=== PATIENT | female | born 1975 | race Two or more races ===

== ENCOUNTER 2017-07-05 07:43 | Inpatient (IN) | payer BC, OTHER ==
[~2017-07-05] VITALS: Ht 180.3 cm; Wt 72.1 kg
--- NOTE | 2017-07-05 12:00 | NUR ---
PRE ADMISSION 42 year old female from [place], alert and oriented x4. bp: 94/55 p: 81 t: 98.0 r: 16 o2 sat: 97% room air. Patient reports allergies to: sulfa, penicillin, and Dilaudid. patient reports she is here to detox off of Valium and marijuana. Patient reports history of seizure x1 7 years ago due to withdrawal off of benzodiazepines. Patient was educated regarding unit policy and procedures with good verbal understanding. patient denies pain/discomfort. patient calm and cooperative. Will notify Dr. rivera of new admission.
--- NOTE | 2017-07-05 12:14 | NUR ---
ADMISSION Patient arrived to unit at 1214, body search completed by female [employer], no contraband found. Body assessment completed, patients skin is intact, no bruising, discoloration or breakdown noted. Patient is 5 feet 11 inches tall. patient weights 159 lbs. Patient was oriented to unit and to room, education regarding call light use was provided with good verbal understanding. Patient reports her primary care physician is: Dr. Kelvin Andrews in [place] . Patient reports allergies to: sulfonamide, penicillins, and Dilaudid. Patient repots she moved to [place] January 2016 from [place], has been living by her self in a rental ([employer]). Patient reports her primary film projector operator is Dr. Jhonny Macias at [facility] in [place]. Patient reports substance use/history of: Valium 45mg Po daily for two months, reports take 15mg three times a day, last took 15mg on 07/04/2017 at bedtime. Marijuana 1 gram (Vape) oil smoked daily for two months, last used 1 gram 07/05/2017, prior to coming to [facility]. Patient reports she relapsed approximately two months ago. Reports from July-August 2016 was at [facility] in [facility], and from August 2016-April [address] [facility] in [place], relapsed one week later. reports longest period of sobriety was for 2 years, 7 years ago. Patient brought home medications, medications were input into [facility]. 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 Patient reports weight loss of 26 lbs in 5 weeks, as per patient she is currently "restrictive" of what she eats. Patient reports she has had one episode of seizure 7 years ago, d/t benzodiazepine withdrawal. Patient does not know if she has a family history of substance abuse, reports she is adopted. Patient reports attempted suicide on May 17, 2016 overdosed on benzodiazepines, did not receive medical care. Current patient reports she has not thoughts of suicide or no plans for suicide. during assessment patient was seen and examined by Dr. Jaime. Psychiatrist notified of new admission. Patients pupils are equal and reactive, 3mm. Lungs clear upon auscultation. Abdomen is soft and non distended, bowel sounds heard in all quadrants. Safety measures in place. call light kept with in reach. fall and seizure precautions observed and in place. all needs met and rendered, safety measures in place. will continue to monitor closely.
[2017-07-05] MEDS ORDERED: MONT10TA22 PO (12:15)
[2017-07-05] MEDS ORDERED: CLON0.1T PO (12:15)
[2017-07-05] MEDS ORDERED: ONDA4TAB5 PO (12:15)
[2017-07-05] MEDS ORDERED: OMEP40CA37 PO (12:15)
[2017-07-05] MEDS ORDERED: GABA600T2 PO (12:15)
[2017-07-05] MEDS ORDERED: ALBU8.5H8 IH (12:15)
[2017-07-05] MEDS ORDERED: FLUO40CA8 PO (12:15)
[2017-07-05 12:44] VITALS: BP 94/55
[2017-07-05] MEDS ORDERED: DIAZEPAM 10 MG TABLET PO PRN ×2 (14:00)
[2017-07-05] MEDS ORDERED: LOPERAMIDE HCL 2 MG CAPSULE PO PRN ×2 (14:00)
[2017-07-05] MEDS ORDERED: ONDANSETRON 4 MG/2 ML VIAL IM PRN (14:00)
[2017-07-05] MEDS ORDERED: MAG HYDROX/AL HYDROX/SIMETH 30 ML LIQUID UDC PO PRN (14:00)
[2017-07-05] MEDS ORDERED: MIRALAX 17 GM POWD.PACK PO PRN (14:00)
[2017-07-05] MEDS ORDERED: PROAIR ALBUTEROL INH PRN (14:00)
[2017-07-05] MEDS ORDERED: DICYCLOMINE HCL 20 MG TABLET PO PRN (14:00)
[2017-07-05] MEDS ORDERED: IBUPROFEN 400 MG TABLET PO PRN (14:00)
[2017-07-05] MEDS ORDERED: LORAZEPAM 2 MG/1 ML VIAL IM PRN (14:00)
[2017-07-05] MEDS ORDERED: ACETAMINOPHEN 325 MG TABLET PO PRN (14:00)
[2017-07-05] MEDS ORDERED: DIAZEPAM 5 MG TABLET PO PRN (14:00)
[2017-07-05] MEDS ORDERED: PATIENT MAY USE OWN MED- MD OK PO PRN (14:00)
[2017-07-05 15:17] LABS: *URINE HCG, QUAL NEGATIVE (NEGATIVE)
[2017-07-05] MEDS ORDERED: THIAMINE HCL 200 MG/2 ML VIAL IM ONE (15:25)
[2017-07-05] MEDS ORDERED: BACLOFEN 20 MG TABLET PO PRN (16:00)
[2017-07-05] MEDS: DIAZEPAM 10 MG TABLET PO SCH ×3 (16:07→22:00)
[2017-07-05 16:12] LABS: *AMPHETAMINE, URINE NEGATIVE (NEGATIVE); *BARBITURATE, URINE NEGATIVE (NEGATIVE); *CANNABINOID, URINE POSITIVE (NEGATIVE); *COCCAINE, URINE NEGATIVE (NEGATIVE); *OPIATE, URINE NEGATIVE (NEGATIVE); *PHENCYCLIDINE SCREEN,URINE NEGATIVE (NEGATIVE)
[2017-07-05] MEDS ORDERED: HYDROXYZINE PAMOATE 25 MG CAPSULE PO PRN (16:15)
[2017-07-05 16:52] LABS: BASOPHILS % (AUTO) 0.7 % (0.0-2.0); EOSINOPHILS # (AUTO) 0.5 K/uL (0.0-0.7); EOSINOPHILS % (AUTO) 6.8 % (0.0-7.0); HEMATOCRIT 41.4 % (37-47); HEMOGLOBIN 13.3 G/DL (12.0-16.0); LYMPHOCYTES % (AUTO) 28.9 % (20.5-51.5); MEAN CORPUSCULAR HGB CONC 32 g/dL (32.0-37.0); MEAN CORPUSCULAR VOLUME 83.9 FL (81.0-99.0); MONOCYTES # (AUTO) 0.6 K/UL (0.1-1.30); MONOCYTES % (AUTO) 8.8 % (0.0-11.0); NEUTROPHILS # (AUTO) 3.7 K/UL (1.8-8.9); NEUTROPHILS % (AUTO) 54.8 % (38.5-71.5); PLATELET COUNT (AUTO) 278 K/UL (150-450); RED BLOOD CELL COUNT(AUTO) 4.93 MIL/UL (4.2-5.4); WHITE BLOOD COUNT (AUTO) 6.8 K/UL (4.0-11.2)
[2017-07-05 17:00] VITALS: BP 93/64
[2017-07-05 17:12] LABS: ETHANOL < 3 MG/DL (0-0)
[2017-07-05 17:15] LABS: ALANINE AMINOTRANSFERASE 17 U/L (14-59); ALKALINE PHOSPHATASE 54 U/L (50-136); ASPARTATE AMINOTRANSFERASE 6 U/L (15-37); BILIRUBIN,TOTAL 0.2 mg/dL (0.2-1.0); CARBON DIOXIDE 33 mmol/L (21-32); CHLORIDE 100 mmol/L (98-107); CREATININE 1.2 mg/dL (0.6-1.3); GLUCOSE 110 mg/dL (74-106); MAGNESIUM 2.3 mg/dL (1.8-2.4); POTASSIUM 3.9 mmol/L (3.5-5.1); TOTAL PROTEIN, SERUM 7.4 g/dL (6.4-8.2); UREA NITROGEN, BLOOD 7 mg/dL (7-18)
[2017-07-05] MEDS ORDERED: FLUOXETINE HCL 60 MG PO SCH (17:15)
[2017-07-05] MEDS ORDERED: Medication Not On Formulary EA (Gabapentin 600 MG) PO SCH (17:15)
[2017-07-05] MEDS: FLUOXETINE HCL 20 MG CAPSULE PO SCH (17:36)
[2017-07-05] MEDS: GABAPENTIN 300 MG CAPSULE PO SCH (17:36)
--- NOTE | 2017-07-05 17:36 | NUR ---
PRN BACLOFEN Patient c/o muscle aches 04/09, provided with non pharmacological interventions, with no relief, administered baclofen as ordered, will monitor effectiveness.
--- NOTE | 2017-07-05 18:36 | NUR ---
BACLOFEN REASSESSMENT Patient reports medication effective, current pain level 0/10, will continue to monitor.
--- NOTE | 2017-07-05 18:57 | NUR ---
END OF SHIFT Patient alert and oriented x4, vital signs stable during shift. Patient compliant with therapeutic plan of care. Patient with admitting Dx:BZO/marijuana dependence. Patient was seen and examined by Dr. rivera and Dr. Mann, medications were reconciled during shift. Patient currently with ongoing Valium taper, well tolerated, no ASE. Detox medication effective at reducing withdrawal symptoms. 1300 assessment patient presented with: tremors that can be felt but not seen, barely sweating, moderate anxiety, and restlessness with ciwa score of: 9; 1700 assessment patient presented with: tremors that can be felt but not seen, barely sweating, moderate anxiety and restlessness with ciwa score of: 9. Patient was administered PRN: Baclofen during shift, medication was effective. Patient denies any SI/HI. Encouraged to attend group therapies/sessions to learn new coping skills to prevent relapse.Encouraged adequate PO fluid intake as tolerated. Safety measures in place. Call light kept with in reach. All needs met and rendered. Patient endorsed to dining car hop nurse, all pertinent information discussed.
[2017-07-05 20:00] VITALS: BP 98/69
--- NOTE | 2017-07-05 20:00 | NUR ---
start of shift Received 42 year old female, alert and oriented x4. Patient reports allergies to: sulfa, penicillin, and Dilaudid. Px reports she is here to detox off of Valium and marijuana. 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 Patient reports history of seizure due to withdrawal off of benzodiazepines. Px reports body aches and hot and cold flushes throughout her body, fatigue, skin is clammy. Respiration is non labored, denies chest pain. Medications due and safety measures placed, call light within reach, side rails up x2. Bed locked and in low position. Will continue to monitor.
[2017-07-05] MEDS: CARBAMAZEPINE 200 MG TABLET PO SCH (20:05)
[2017-07-05] MEDS: GABAPENTIN 600MG PO SCH (20:05)
[2017-07-05] MEDS: OMEPRAZOLE DR 40MG PO SCH (20:05)
--- NOTE | 2017-07-05 20:30 | NUR ---
Px refused to take Clonidine 0.1 mg risk and benefits explained. BP= 98/69, AZ=63. Px is stable, safety precautions in placed, will continue to monitor.
[2017-07-05] MEDS: CLONIDINE 0.1MG PO SCH (21:00)
--- NOTE | 2017-07-05 22:00 | NUR ---
Medication Held Valium 10mg 1 tab held due to decrease BP. BP= 84/48 then rechecked after 15mins BP= 94/59, OR=60. Px sleeping on bed, arousable, respirations unlabored. Safety measures in placed. Will continue to monitor. Addendum: 07/06/17 at 0123 by SCOTT MURPHY RN MD kaye
[2017-07-06] VITALS: BP 91/54
--- NOTE | 2017-07-06 | NUR ---
VS BP= 91/54, NC=57, RR=16, V5srl=02%, T=97.8 CIWA deferred due to the px is sleeping, to assess while the px awake as ordered. Safety measures in place, will continue to monitor.
[2017-07-06 04:00] VITALS: BP 99/71
--- NOTE | 2017-07-06 04:00 | NUR ---
VS BP= 99/71, NE= 55, RR= 18, O2sat= 99%, T= 98.1 CIWA defferred due to px ix sleeping to assess if the px is awake as ordered Safety measures are in placed, will continue to monitor
--- NOTE | 2017-07-06 07:00 | NUR ---
End of Shift notes 42 year old female px, alert and oriented x4. Patient reports allergies to: sulfa, penicillin, and Dilaudid. Px reports she is here to detox off of Valium and marijuana. 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 Patient reports history of seizure due to withdrawal off of benzodiazepines. During shift Px reported body aches and hot and cold flushes throughout her body, fatigue, skin is clammy scheduled medications administered. Valium 10mg held due to decreased BP, MD notified and aware. Latest CIWA 6. Px slept for 10 hours, intake of 300 ml, and voids 1 x, BM 0x. Safety measures placed, call light within reach, side rails up x2. Bed locked and in low position. Endorsed to day shift nurse.
--- NOTE | 2017-07-06 07:30 | NUR ---
START OF SHIFT NOTE: Received report from lieutenant shift supervisor nurse. Pt is a 42 year old female admitted 07-05-17 for Valium and marijuana dependence. Pt is on a 5 day Valium taper. Tolerating well. Pt is alert and oriented X4. Color good, skin warm and dry. Respirations even and unlabored. Pt resting in bed. Safety precautions observed. Call light within reach.
[2017-07-06 08:00] VITALS: BP 107/58
[2017-07-06] MEDS ORDERED: FLUOXETINE HCL 20 MG CAPSULE PO SCH (09:00)
[2017-07-06] MEDS: GABAPENTIN 300 MG CAPSULE PO SCH (09:00)
[2017-07-06] MEDS ORDERED: FOLIC ACID 1 MG TABLET PO SCH (09:00)
[2017-07-06] MEDS ORDERED: THIAMINE HCL 100 MG TABLET PO SCH (09:00)
[2017-07-06] MEDS ORDERED: TUBERCULIN,PURIF.PROT.DERIV. 5 TU/0.1 ML TEST ID ONE (09:00)
--- NOTE | 2017-07-06 09:00 | NUR ---
VSS CIWA 8 c/o fine tremors, anxiety and sweating. TB test read LFA negative
[2017-07-06] MEDS: CLONIDINE 0.1MG PO SCH ×3 (09:15→21:00)
[2017-07-06] MEDS: DIAZEPAM 10 MG TABLET PO SCH ×3 (09:15→21:00)
[2017-07-06] MEDS: FLUOXETINE HCL 20 MG CAPSULE PO SCH (09:15)
[2017-07-06] MEDS: MULTIVITAMINS,THERAPEUTIC TABLET PO SCH (09:15)
[2017-07-06] MEDS: CARBAMAZEPINE 200 MG TABLET PO SCH ×2 (09:15→21:01)
[2017-07-06] MEDS: GABAPENTIN 600MG PO SCH ×3 (09:16→21:02)
[2017-07-06] MEDS: MONTELUKAST 10 MG PO SCH (09:16)
[2017-07-06 11:10] LABS: HEPATITIS B SURFACE AG Negative (Negative)
[2017-07-06 12:30] VITALS: BP 107/58
[2017-07-06] MEDS ORDERED: BACLOFEN 20 MG TABLET PO PRN (13:30)
[2017-07-06] MEDS: DICYCLOMINE HCL 20 MG TABLET PO SCH ×2 (14:13→21:00)
[2017-07-06] MEDS: KETOROLAC TROMETHAMINE 30 MG INJ IM PRN (14:15)
--- NOTE | 2017-07-06 14:21 | NUR ---
VSS Pt c/o back pain 06/09 Toradol 30mg IM prn given LG. CIWA 5
[2017-07-06] MEDS ORDERED: DIAZEPAM 5 MG TABLET PO PRN (14:30)
[2017-07-06] MEDS ORDERED: DIAZEPAM 10 MG TABLET PO PRN ×2 (14:30)
--- NOTE | 2017-07-06 15:30 | NUR ---
Pt states feels improved after Toradol prn. Pain 5/
[2017-07-06 17:18] VITALS: BP 101/66
--- NOTE | 2017-07-06 17:50 | NUR ---
Vistaril 50mg po rn given for "panic attack."
[2017-07-06] MEDS: HYDROXYZINE PAMOATE 25 MG CAPSULE PO PRN (17:51)
--- NOTE | 2017-07-06 18:41 | NUR ---
Pt states feels finally improved after Vistaril prn
--- NOTE | 2017-07-06 19:07 | NUR ---
END OF SHIFT NOTE: Report given to manhole stripper nurse. Pt is a 42 year old female admitted 07-05-17 for Valium and marijuana dependence. Pt is on a 5 day Valium taper. Tolerating well. Pt is alert and oriented X4. Color good, skin warm and dry. Respirations even and unlabored. Vital signs have remained stable throughout shift. Last CIWA 5 @ 1500. Toradol 30mg IM prn given LG @ 1400. Vistaril 50mg po prn given @ 1750. Pt resting in bed. Safety precautions observed. Call light within reach.
[2017-07-06 20:00] VITALS: BP 98/68
--- NOTE | 2017-07-06 20:00 | NUR ---
Start of Shift Pt is a 42 year old female admitted for Benzo dependence, placed on 5 day Valium taper. Pt reported using Valium PO 45mg 45mg/daily x2 months and Marijuana 1g/daily x 2months. 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 Pt reports allergies to PCN, Sulfa and Dilaudid. Upon assessment, pt presents with anxiety, fatigue, reports body/joint aches and hot flushes, respirations even/unlabored, denies SOB/chest pain, denies n/v/d. Safety measures in place, call light within reach, side rails up x2, bed locked and in low position. Will continue to monitor.
[2017-07-06] MEDS: QUETIAPINE FUMARATE 200 MG TABLET PO SCH (21:00)
[2017-07-06] MEDS: OMEPRAZOLE DR 40MG PO SCH (21:00)
[2017-07-07] VITALS: BP 98/56
--- NOTE | 2017-07-07 | NUR ---
Vital Signs BP 98/56, pulse 66, resp 16, Spo2 97% room air, temp 98 CIWA deferred due to pt sleeping, to assess while pt is awake as ordered. Safety measures in place. Will continue to monitor.
[2017-07-07 04:00] VITALS: BP 95/55
[2017-07-07] MEDS: KETOROLAC TROMETHAMINE 30 MG INJ IM PRN ×2 (04:28→20:05)
--- NOTE | 2017-07-07 04:28 | NUR ---
PRN Administration Pt reports generalized body pain, 05/09. Toradol inj administered. Safety measures in place, will continue to monitor.
--- NOTE | 2017-07-07 05:28 | NUR ---
PRN Reassessment Upon reassessment, pt is in bed, resting, respirations even/unlabored. Safety measures in place. Will continue to monitor
--- NOTE | 2017-07-07 07:00 | NUR ---
End of Shift Pt is a 42 year old female admitted for Benzo dependence, placed on 5 day Valium taper. Pt reported using Valium PO 45mg 45mg/daily x2 months and Marijuna 1g/daily x 2months. 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 Pt reports allergies to PCN, Sulfa and Dilaudid. During shift, pt presented with anxiety, fatigue, reports body/joint aches and hot flushes - scheduled taper medications administered, CIWA 5. No PRN medications administered. Pt refused scheduled Bentyl 20mg PRN and Clonidine 0.1mg - education provided on risks/benefits. Toradol Inj administered for generalized body aches, as noted in separate note. Pt slept for 6 hours, intake of 855 ml PO, voids x1 and stool x0. Safety measures in place, call light within reach, side rails up x2, bed locked and in low position. Endorsed to days shift nurse.
--- NOTE | 2017-07-07 07:01 | NUR ---
Start of Shift Notes: Received patient in her room. Alert and oriented x 4. Verbally responsive. Able to make needs known. Respirations even and unlabored. No SOB noted. Skin warm and dry to touch. Abdomen soft and non-distended. with (+) BS in all 4 quadrants. No complains of N/V/D or constipation noted. Voids independently. Ambulatory ad viridiana with steady gait. Patient is a 42 year old female admitted for BZO and marijuana dependence who was placed on a 5-day Valium taper as ordered. No adverse reactions noted. 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 Prior to admission, patient was using 45 mg of Valium and 1 gram of Marijuana. Educated patient on her current plan of care for the day and her medication regimen. Encouraged oral fluid intake and encouraged group participation to learn new skills to prevent relapse.
[2017-07-07 08:00] VITALS: BP 100/63
[2017-07-07] MEDS: MULTIVITAMINS,THERAPEUTIC TABLET PO SCH (08:45)
[2017-07-07] MEDS: DIAZEPAM 5 MG TABLET PO SCH ×4 (08:46→20:00)
[2017-07-07] MEDS: FLUOXETINE HCL 20 MG CAPSULE PO SCH (08:46)
[2017-07-07] MEDS: CLONIDINE 0.1MG PO SCH ×3 (08:46→20:29)
[2017-07-07] MEDS: GABAPENTIN 600MG PO SCH ×3 (08:46→20:01)
[2017-07-07] MEDS: DICYCLOMINE HCL 20 MG TABLET PO SCH ×3 (08:46→20:29)
[2017-07-07] MEDS: MONTELUKAST 10 MG PO SCH (08:52)
[2017-07-07] MEDS ORDERED: CARBAMAZEPINE 200 MG TABLET PO SCH (09:00)
[2017-07-07] MEDS ORDERED: METHOCARBAMOL 500 MG TABLET PO PRN (11:30)
[2017-07-07 12:00] VITALS: BP 92/50
[2017-07-07] MEDS: BACLOFEN 10 MG TABLET PO SCH ×2 (14:28→20:00)
[2017-07-07] MEDS: CARBAMAZEPINE 200 MG TABLET PO SCH ×2 (14:28→20:00)
[2017-07-07] MEDS: HYDROXYZINE PAMOATE 25 MG CAPSULE PO PRN (14:28)
--- NOTE | 2017-07-07 14:28 | NUR ---
Vistaril 50 mg PO given: Patient complained of anxiety. Noted to be restless. Non-pharmacological interventions were provided but ineffective. Medicated patient with Vistaril 50 mg PO as ordered. Will monitor for effectiveness.
--- NOTE | 2017-07-07 15:28 | NUR ---
Re-assessment: Per patient, PRN Vistaril was effective in reducing patient's anxiety.
[2017-07-07 16:00] VITALS: BP 96/54
--- NOTE | 2017-07-07 18:54 | NUR ---
End of Shift Notes: Patient continues to be on 5-day Valium as ordered. No adverse reactions noted. VS monitored closely q 4 hours. No significant abnormalities noted. Withdrawal symptoms closely monitored. Initial CIWA 6, patient presented with anxiety, sweats and agitation. Last CIWA 3. Per patient, Valium has been helping her with her withdrawal symptoms. Compliant with care and treatment. All needs met and attended. Will continue to monitor closely.
[2017-07-07 20:00] VITALS: BP 90/60
[2017-07-07] MEDS: QUETIAPINE FUMARATE 200 MG TABLET PO SCH (20:00)
--- NOTE | 2017-07-07 20:00 | NUR ---
Start of Shift Pt is a 42 year old female admitted for Benzo dependence, placed on 5 day Valium taper. Pt reported using Valium PO 45mg 45mg/daily x2 months and Marijuana 1g/daily x 2months. 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 Pt reports allergies to PCN, Sulfa and Dilaudid. Upon assessment, pt presents with fatigue, reports feeling anxious, reports body/joint aches, respirations even/unlabored, denies SOB/chest pain, denies n/v/d. Safety measures in place, call light within reach, side rails up x2, bed locked and in low position. Will continue to monitor.
[2017-07-07] MEDS: OMEPRAZOLE DR 40MG PO SCH (20:01)
--- NOTE | 2017-07-07 20:05 | NUR ---
PRN Administration Pt reports generalized body aches 06/09. Toradol inj 30mg/1ml PRN administered. Safety measures in place. Will continue to monitor.
--- NOTE | 2017-07-07 21:05 | NUR ---
PRN Reassessment Upon reassessment, pt reports subsiding body aches, rated 2-3/10. Needs met, safety measures in place. Will continue to monitor.
[2017-07-08] VITALS: BP 92/67
--- NOTE | 2017-07-08 | NUR ---
Vital Signs BP 92/67, pulse 68, resp 16, Spo2 99% room air, temp 97.9 CIWA deferred due to pt sleeping, to assess while pt is awake as ordered. Safety measures in place. Will continue to monitor.
[2017-07-08 04:00] VITALS: BP 96/62
--- NOTE | 2017-07-08 04:00 | NUR ---
Vital Signs BP 96/62, pulse 59, resp 17, Spo2 99% room air, temp 98.3 CIWA deferred due to pt sleeping, to assess while pt is awake as ordered. Safety measures in place. Will continue to monitor.
--- NOTE | 2017-07-08 07:00 | NUR ---
End of Shift Pt is a 42 year old female admitted for Benzo dependence, placed on 5 day Valium taper. Pt reported using Valium PO 45mg 45mg/daily x2 months and Marijuana 1g/daily x 2months. 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 Pt reports allergies to PCN, Sulfa and Dilaudid. During shift, pt presented with fatigue, reports feeling anxious, reports body/joint aches scheduled taper medications administered along with Toradol inj 30mg/ml for body aches, effective. Pt refused scheduled Clonidine 0.1mg and Bentyl 20mg, risks benefits explained. Latest CIWA 3. Pt slept for 11 hours, intake of 300 ml PO, voids x1 and stool x0. Safety measures in place, call light within reach, side rails up x2, bed locked and in low position. Endorsed to day shift nurse.
[2017-07-08 08:00] VITALS: BP 94/56
[2017-07-08] MEDS: ONDANSETRON ODT 4 MG TAB.RAPDIS SL PRN (08:07)
[2017-07-08] MEDS: FLUOXETINE HCL 20 MG CAPSULE PO SCH (08:07)
[2017-07-08] MEDS: MULTIVITAMINS,THERAPEUTIC TABLET PO SCH (08:07)
[2017-07-08] MEDS: MONTELUKAST 10 MG PO SCH (08:08)
[2017-07-08] MEDS: BACLOFEN 10 MG TABLET PO SCH ×3 (08:08→21:00)
[2017-07-08] MEDS: DIAZEPAM 5 MG TABLET PO SCH ×3 (08:08→21:00)
[2017-07-08] MEDS: CARBAMAZEPINE 200 MG TABLET PO SCH ×3 (08:08→21:00)
[2017-07-08] MEDS: GABAPENTIN 600MG PO SCH ×3 (08:08→21:00)
--- NOTE | 2017-07-08 08:08 | NUR ---
Zofran 4 mg SL given: Patient noted with complain of intermittent nausea with no vomiting noted. CIWA 10, noted with anxiousness and mild agitation. Medicated patient with Zofran 4 mg SL as ordered. Will monitor for effectiveness.
[2017-07-08] MEDS: CLONIDINE 0.1MG PO SCH ×3 (09:00→21:00)
[2017-07-08] MEDS: DICYCLOMINE HCL 20 MG TABLET PO SCH ×3 (09:00→21:00)
--- NOTE | 2017-07-08 09:02 | NUR ---
Clonidine 0.1mg PO held/Bentyl 20 mg PO not given: Patient refused Bentyl 20 mg PO, states "I don't need it right now." Noted with decreased blood pressure of 94/56. Clonidine 0.1mg PO held. Denies any complains of headache, lightheadedness or dizziness noted.
--- NOTE | 2017-07-08 09:07 | NUR ---
Re-assessment: Zofran 4 mg SL Per patient, PRN Zofran was effective in relieving nausea.
[2017-07-08 12:00] VITALS: BP 106/76
--- NOTE | 2017-07-08 14:00 | NUR ---
MD Communication: Notified Dr. Jaime that patient left group early and is complaining of dizziness. VS were taken. Noted with laying BP of 109/68, Pulse 64. sitting BP 127/84, Pulse 65, and standing BP 127/80. Patient verbalizes "the room is spinning." Notified MD Jaime. NNO made at this time. To continue to monitor the patient. Safety precautions in place. Kept bilateral siderails up when in bed. Call light kept in reach. Encouraged patient to rest and to notfy nurse immediately.
--- NOTE | 2017-07-08 14:21 | NUR ---
Bentyl 20 mg PO not given: Patient refused Bentyl 20 mg PO, states "I don't need it right now." Educated patient on the risk and consequences but patient still refused. Will continue to monitor and notified MD.
[2017-07-08 16:45] VITALS: BP 102/73
--- NOTE | 2017-07-08 17:27 | NUR ---
Zofran 4 mg IM injection: Administered Zofran 4 mg IM injection at this time. Patient is unable to tolerate any PO intake during the shift. MD Jaime paged. Will monitor effectiveness.
--- NOTE | 2017-07-08 17:36 | NUR ---
MD Communication: Patient noted with CIWA 19, noted with gross tremors, vomitting x 4, noted with sweating and mild agitation. Also noted to speech is slurred. Able to verbalize date and time, however noted racing thoughts, stating "I need to make a phone call, im discharging today." Patient was oriented and reassurance provided. Also noted patient to have unsteady gait and requires assistance when walking. Placed on 1:1 at this time. Message left to Dr. Jaime's voicemail. Notified Charge nurse. Awaiting for MD to return the call.
--- NOTE | 2017-07-08 17:57 | NUR ---
Re-assessment: Zofran Per patient, PRN Zofran was effective in relieving vomitting. No further episodes of emesis noted. Patient continues to complain of nausea. Will continue to monitor the patient.
--- NOTE | 2017-07-08 18:00 | NUR ---
New Orders: Dr. Jaime returned call. Relayed patient's current condition with orders to do STAT CBC, BMP, MAG, CXR, UA, BLOOD CULTURE, VALIUM 5 MG x 1, and IV NS at 125cc/hr. is away from a computer and is unable to enter in orders at this time. Orders readback and verified. Orders noted and carried out.
[2017-07-08] MEDS ORDERED: DIAZEPAM 5 MG TABLET PO ONE (18:15)
--- NOTE | 2017-07-08 18:30 | NUR ---
Valium 5 mg PO x 1 given now: Patient's CIWA 19. OT Valium 5 mg PO x 1 given now.
[2017-07-08] MEDS: IV NS 1000 ML 1,000 ML IV SCH (18:57)
--- NOTE | 2017-07-08 18:59 | NUR ---
IV inserted: Inserted IV to patient's left hand via aseptic technique. Educated patient before procedure was performed. Attempted x 2 with good blood return. Tourniquet released. Patient tolerated procedure well. Utilized 24g to patient's left hand. IV fluids initiated at 125cc/hr. Flushed adequately with NS per unit's protocol.
[2017-07-08 19:04] LABS: BASOPHILS % (AUTO) 0.5 % (0.0-2.0); EOSINOPHILS # (AUTO) 0.3 K/uL (0.0-0.7); EOSINOPHILS % (AUTO) 5.5 % (0.0-7.0); HEMATOCRIT 39.2 % (37-47); HEMOGLOBIN 12.7 G/DL (12.0-16.0); LYMPHOCYTES # (AUTO) 1.7 K/UL (0.8-4.8); LYMPHOCYTES % (AUTO) 31.7 % (20.5-51.5); MEAN CORPUSCULAR HEMOGLOBIN 26.7 UUG (27.0-31.0); MEAN CORPUSCULAR HGB CONC 32 g/dL (32.0-37.0); MEAN CORPUSCULAR VOLUME 82.7 FL (81.0-99.0); MONOCYTES # (AUTO) 0.4 K/UL (0.1-1.30); MONOCYTES % (AUTO) 7.8 % (0.0-11.0); NEUTROPHILS # (AUTO) 3.1 K/UL (1.8-8.9); NEUTROPHILS % (AUTO) 54.5 % (38.5-71.5); PLATELET COUNT (AUTO) 258 K/UL (150-450); RED BLOOD CELL COUNT(AUTO) 4.74 MIL/UL (4.2-5.4); WHITE BLOOD COUNT (AUTO) 5.5 K/UL (4.0-11.2)
[2017-07-08 19:08] LABS: MAGNESIUM 1.9 mg/dL (1.8-2.4)
--- NOTE | 2017-07-08 19:15 | NUR ---
START OF SHIFT Received 42 year old female admitted on 07/05/17 for Valium dependency. Pt is full code with allergy to sulfa, PCN, and dilaudid. 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 She reports a hx of seizure in 2006 related with withdrawal. She reports using Valium PO 45 mg daily for 2 months. Last dose as 15 mg on 07/04/17. And Marijuana 1 gram daily for 2 months. Last dose was 1 gram on 07/05/17. She is placed on 5 day Ativan taper started on 07/05/17 and tolerating well. She is currently on 1:1 for safety. She has a 24 gauge IV on left hand with NS running at 125 mL/hr. Pt is tolerating well. Per endorsement, she received PRN Zofran and valium x1. Pt is alert and oriented x3, breathing is even and unlabored. Safety measures in place. Will monitor.
[2017-07-08 19:18] LABS: POTASSIUM 4.3 mmol/L (3.5-5.1)
--- NOTE | 2017-07-08 19:23 | NUR ---
End of Shift Notes: Patient continues to be on 5-day Valium as ordered. No adverse reactions noted. VS monitored closely q 4 hours. BP at 0800 94/56, Clonidine was held. Withdrawal symptoms closely monitored. Initial CIWA 10, patient presented with anxiety, nausea, sweats and agitation. Medicated patient with Zofran 4 mg ODT as ordered for nausea with help after 1 hour. Noted patient with complain of dizziness during the day. VS stable. Patient noted with episodes of emesis x 4, unsteady gait, sweating, gross tremors. CIWA 19. Notified MD, new order received. Orders noted and carried out. OT Valium 5 mg PO given at 1830. Results pending. IV of NS at 125cc/hr to patients left hand infusing well. Compliant with care and treatment. All needs met and attended. Will continue to monitor closely.
--- NOTE | 2017-07-08 19:30 | NUR ---
VALIUM REASSESSMENT One time Valium effective. Pt noted with nausea. CIWA decreased to 16. Will continue to monitor.
[2017-07-08 20:00] VITALS: BP 118/84
[2017-07-08] MEDS: QUETIAPINE FUMARATE 200 MG TABLET PO SCH (21:00)
[2017-07-08] MEDS: OMEPRAZOLE DR 40MG PO SCH (21:00)
--- NOTE | 2017-07-08 22:00 | NUR ---
NON ADMINISTERED MEDICATIONS Pt refused 2100 dose of medications d/t nausea and vomiting. Pt stated " I can't take tolerate meds, I'm so nauseous." Will continue to monitor.
--- NOTE | 2017-07-08 22:24 | NUR ---
Communication: Pt with nausea and vomiting not relieved by PRN Zofran IM 4mg. Unable to administered scheduled 21:[address] Nobles contacted and new order received for Zofran 4mg IM x1 NOW and to change PRN Zofran to 8mg Q8H PRN.
[2017-07-08] MEDS ORDERED: ONDANSETRON 4 MG/2 ML VIAL IM PRN (22:30)
[2017-07-08] MEDS ORDERED: ONDANSETRON 4 MG/2 ML VIAL IM ONE (22:30)
--- NOTE | 2017-07-08 22:51 | NUR ---
ONE TIME ZOFRAN One time order of Zofran 4 mg IM x1 administered as ordered. Pt tolerated well. Will monitor effectiveness.
--- NOTE | 2017-07-08 23:51 | NUR ---
REASSESSMENT One time zofran effective. Pt states she feels better and nausea has decreased. Breathing even and unlabored. Sitter at bedside. Will monitor.
[2017-07-09] VITALS: BP 106/64
[2017-07-09] MEDS: IV NS 1000 ML 1,000 ML IV SCH ×3 (02:37→18:30)
[2017-07-09 04:00] VITALS: BP 98/60
--- NOTE | 2017-07-09 04:00 | NUR ---
CIWA DEFERRED 0400 CIWA deferred d/t pt lying in bed with eyes closed noted to be asleep. Respirations 16, breathing even and unlabored. Safety measures in place. Will monitor.
[2017-07-09 06:42] LABS: BASOPHILS # (AUTO) 0.1 K/uL (0.0-8.0); BASOPHILS % (AUTO) 0.9 % (0.0-2.0); EOSINOPHILS # (AUTO) 0.1 K/uL (0.0-0.7); EOSINOPHILS % (AUTO) 1.7 % (0.0-7.0); HEMATOCRIT 36.3 % (37-47); HEMOGLOBIN 11.9 G/DL (12.0-16.0); LYMPHOCYTES # (AUTO) 1.4 K/UL (0.8-4.8); MEAN CORPUSCULAR HEMOGLOBIN 27.4 UUG (27.0-31.0); MEAN CORPUSCULAR HGB CONC 33 g/dL (32.0-37.0); MEAN CORPUSCULAR VOLUME 83.6 FL (81.0-99.0); MONOCYTES # (AUTO) 0.3 K/UL (0.1-1.30); MONOCYTES % (AUTO) 4.4 % (0.0-11.0); NEUTROPHILS # (AUTO) 5.2 K/UL (1.8-8.9); PLATELET COUNT (AUTO) 255 K/UL (150-450); RED BLOOD CELL COUNT(AUTO) 4.34 MIL/UL (4.2-5.4)
[2017-07-09 06:52] LABS: WHITE BLOOD COUNT (AUTO) 7.1 K/UL (4.0-11.2)
--- NOTE | 2017-07-09 06:58 | NUR ---
PRN ZOFRAN Pt complains of nausea with no episode of vomiting. Zofran IV administered as ordered. Will endorse to monitor effectiveness.
[2017-07-09] MEDS ORDERED: ONDANSETRON 4 MG/2 ML VIAL IV PRN (07:00)
--- NOTE | 2017-07-09 07:16 | NUR ---
END OF SHIFT Pt is a 42 year old female admitted on 07/05/17 for Valium dependency. Pt is full code with allergy to sulfa, PCN, and dilaudid. 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 She reports a hx of seizure in 2006 related with withdrawal. She continues on a 5 day Ativan taper started on 07/05/17 and continues on 1:1 for safety. She has a 24 gauge IV on left hand with NS running at 125 mL/hr. IV site is patent and flushing well. Pt is also tolerating fluids well. She had an episode of nausea and vomiting which was unrelieved by Zofran IM. was notified with new order for another dose of Zofran IM. Medication was effective. Pt refused all 2100 medications d/t nausea and vomiting. She slept a total of 4 hrs, Intake: 1000mL, Void: x1, BM: 0. CIWA:16 at 0000. Pt remains alert and oriented x3, breathing is even and unlabored. Safety measures in place. Endorsed to oncoming shift.
[2017-07-09 07:22] LABS: BILIRUBIN,DIRECT 0.1 mg/dL (0.0-0.2); BILIRUBIN,TOTAL 0.4 mg/dL (0.2-1.0); CREATININE 0.8 mg/dL (0.6-1.3); MAGNESIUM 1.8 mg/dL (1.8-2.4); POTASSIUM 4.1 mmol/L (3.5-5.1); TOTAL PROTEIN, SERUM 6.2 g/dL (6.4-8.2)
[2017-07-09] MEDS ORDERED: ONDANSETRON INJ 8 MG in IV NORMAL SALINE 50 ML IV PRN (07:30)
--- NOTE | 2017-07-09 07:45 | NUR ---
PRN REASSESSMENT PATIENT STATES OF NOW HER NAUSEA HAS SUBSIDED. WILL MONITOR
[2017-07-09 08:00] VITALS: BP 119/61
--- NOTE | 2017-07-09 08:10 | NUR ---
START OF SHIFT NOTE Received pt Aox4. Patient states he feels "better this morning, but very nauseous." Pt has 24 g IV to left hand with NS infusing @ 125 ml/hr. She is on 5 day Valium taper. PRN Zofran given per night nurse. She slept slept 4 hours. CIWA 11 at 0800 this morning. Encouraged increase in fluid intake to facilitate detox. Encouraged pt to attend groups and activities. Encouraged pt to notify RN if S/S of W/D worsen. All needs met. Will monitor closely and offer help frequently.
[2017-07-09] MEDS: GABAPENTIN 600MG PO SCH ×3 (08:50→21:57)
[2017-07-09] MEDS: DICYCLOMINE HCL 20 MG TABLET PO SCH ×3 (08:50→21:00)
[2017-07-09] MEDS: BACLOFEN 10 MG TABLET PO SCH ×3 (08:50→21:00)
[2017-07-09] MEDS: CLONIDINE 0.1MG PO SCH ×3 (08:50→21:56)
[2017-07-09] MEDS: MULTIVITAMINS,THERAPEUTIC TABLET PO SCH (08:51)
[2017-07-09] MEDS: MONTELUKAST 10 MG PO SCH (08:51)
[2017-07-09] MEDS: DIAZEPAM 5 MG TABLET PO SCH ×2 (08:51→21:56)
[2017-07-09] MEDS: FLUOXETINE HCL 20 MG CAPSULE PO SCH (08:51)
--- NOTE | 2017-07-09 08:52 | NUR ---
MD COMMUNICATION/ MED REFUSAL PATIENT REFUSED 0900 MEDICATIONS D/T NAUSEA. PT STATES AFTER STANDING IN THE SHOWER, SHE GOT NAUSEOUS AND THREW UP. SHE STATES SHE DOES NOT WANT TO TAKE ANY MEDICATIONS PO. PT REQUESTS PHENERGAN. IV FLUIDS INFUSING. DR CONROY NOTIFIED.
[2017-07-09] MEDS ORDERED: CARBAMAZEPINE 200 MG TABLET PO SCH (09:00)
[2017-07-09] MEDS ORDERED: PROMETHAZINE HCL 25 MG/1 ML VIAL IM PRN (09:15)
--- NOTE | 2017-07-09 10:48 | NUR ---
PRN MEDICATION PHENERGAN IM GIVEN FOR NAUSEA. WILL REASSESS
--- NOTE | 2017-07-09 11:45 | NUR ---
PRN REASSESSMENT PATIENT STATES THE MEDICATION HAS NO HELPED AND SHE JUST THREW UP ACID. WILL NOTIFY
[2017-07-09 12:00] VITALS: BP 115/63
[2017-07-09] MEDS ORDERED: SUMATRIPTAN SUCCINATE 6 MG/0.5 ML VIAL SQ PRN (12:00)
[2017-07-09] MEDS ORDERED: SCOPOLAMINE HYDROBROMIDE 1.5 MG PATCH TD SCH (12:30)
--- NOTE | 2017-07-09 12:40 | NUR ---
PRN MEDICATION IMITREX SUBQ GIVEN FOR HEADACHE 03/09. PT STATES SHE CAN FEEL A MIGRAINE COMING ON. WILL REASSESs
--- NOTE | 2017-07-09 13:35 | NUR ---
PRN REASSESSMENT PATIENT SLEEPING IN BED WITH RR EVEN AND UNLABORED. CALL LIGHT WITHIN REACH.
[2017-07-09 16:00] VITALS: BP 90/63
--- NOTE | 2017-07-09 18:29 | NUR ---
END OF SHIFT NOTE Patient continued on 5 day Valium taper. PRN Phenergan and Imitrex given during shift. Patient refused all scheduled medications during shift d/t nausea and vomiting. Patient has scopolamine patch applied behind right ear- decrease in nausea reported by pt from patch. Patient has 24 g IV to left hand with NS running @ 125 ml/hr. Last CIWA 9.Patient denies S/I or H/I. Patient did not attend groups or activities and rested in bed all of shift. All needs met. All safety measures in place. Vital signs stable. Will endorse to night nurse.
--- NOTE | 2017-07-09 19:15 | NUR ---
START OF SHIFT Received 42 year old female admitted on 07/05/17 for Valium dependency. Pt is full code with allergy to sulfa, PCN, and dilaudid. 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 She reports a hx of seizure in 2006 related with withdrawal. She reports using Valium PO 45 mg daily for 2 months. Last dose as 15 mg on 07/04/17. And Marijuana 1 gram daily for 2 months. Last dose was 1 gram on 07/05/17. She is placed on 5 day Valium taper started on 07/05/17 and tolerating well. Her 1:1 was discontinued. She has a 24 gauge IV on left hand with NS running at 125 mL/hr. Pt is tolerating well. Per endorsement, she received PRN Imitrex and phenergan which was not effective, and currently has scopolamine patch behind right ear. Pt is alert and oriented x3, breathing is even and unlabored. Safety measures in place. Will monitor.
[2017-07-09 20:00] VITALS: BP 108/64
[2017-07-09] MEDS: CARBAMAZEPINE 200 MG TABLET PO SCH (21:00)
--- NOTE | 2017-07-09 21:30 | NUR ---
NURSING NOTE Pt refused IV fluids. Risks and benefits were explained, pt still refused. Will monitor.
[2017-07-09] MEDS: QUETIAPINE FUMARATE 200 MG TABLET PO SCH (21:55)
[2017-07-09] MEDS: OMEPRAZOLE DR 40MG PO SCH (21:57)
--- NOTE | 2017-07-09 22:00 | NUR ---
MEDICATION REFUSAL Pt refused 2100 dose Bentyl, Baclofen, and Tegretol. Risks/benefits explained x3, pt still refused. Safety measures in place. Will monitor.
--- NOTE | 2017-07-10 | NUR ---
VITALS REFUSED/CIWA DEFERRED 0000 vitals refused d/t pt stated she wants to sleep. CIWA deferred. Pt lying in bed with eyes closed noted to be asleep. Respirations 16, breathing even and unlabored. Safety measures in place. Will monitor.
[2017-07-10] MEDS: IV NS 1000 ML 1,000 ML IV SCH (02:30)
--- NOTE | 2017-07-10 02:30 | NUR ---
IV FLUIDS REFUSED Pt refused IV fluids. Risks/benefits explained x3. Pt still refused. Safety measures in place. Will monitor.
--- NOTE | 2017-07-10 04:00 | NUR ---
VITALS REFUSED/CIWA DEFERRED 0400 vitals refused d/t pt stated she wants to sleep. CIWA deferred. Pt lying in bed with eyes closed noted to be asleep. Respirations 16, breathing even and unlabored. Safety measures in place.
[2017-07-10] MEDS ORDERED: PANTOPRAZOLE SODIUM 40 MG TABLET.DR PO SCH (07:00)
--- NOTE | 2017-07-10 07:15 | NUR ---
END OF SHIFT Pt is a 42 year old female admitted on 07/05/17 for Valium dependency. Pt is full code with allergy to sulfa, PCN, and dilaudid. 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 She reports a hx of seizure in 2006 related with withdrawal. She continues on 5 day Valium taper started on 07/05/17 and tolerating well. She has a 24 gauge IV on left hand. NS not currently infusing d/t pt refused. Pt refused 2100 medications of baclofen, bentyl and tegretol. She slept a total of 10 hrs, Intake: 500 mL, Void: x1, BM:0, CIWA:8. Pt remains alert and oriented x3, breathing is even and unlabored. Safety measures in place. Endorsed to oncoming shift.
[2017-07-10 08:00] VITALS: BP 119/70
--- NOTE | 2017-07-10 08:00 | NUR ---
START OF SHIFT: RECEIVED PT A/O X 4. SHE C/O MILD NAUSEA BUT DENIES VOMITING. SHE REPORTS ANXIETY AND NIGHT SWEATS. ENCOURAGED INCREASED FLUIDS TO ASSIST IN FACILITATING DETOX. SHE STATES SHE IS EATING AND DRINKING AND INSISTED ON IV SITE AND FLUIDS BE STOPPED. MED MADE AWARE AND IV DISCONTINUED. SZ PRECAUTIONS NOTED. WILL CONTINUE TO MONITOR AND OFFER SUPPORT.
[2017-07-10] MEDS: BACLOFEN 10 MG TABLET PO SCH ×3 (09:03→20:26)
[2017-07-10] MEDS: DICYCLOMINE HCL 20 MG TABLET PO SCH ×3 (09:04→21:00)
[2017-07-10] MEDS: FLUOXETINE HCL 20 MG CAPSULE PO SCH (09:04)
[2017-07-10] MEDS: MULTIVITAMINS,THERAPEUTIC TABLET PO SCH (09:04)
[2017-07-10] MEDS: GABAPENTIN 600MG PO SCH ×3 (09:05→20:27)
[2017-07-10] MEDS: CLONIDINE 0.1MG PO SCH ×3 (09:05→21:00)
[2017-07-10] MEDS: CARBAMAZEPINE 200 MG TABLET PO SCH ×2 (09:06→21:00)
[2017-07-10] MEDS: MONTELUKAST 10 MG PO SCH (09:07)
[2017-07-10] MEDS ORDERED: SCOP1PAT TD (11:15)
[2017-07-10] MEDS ORDERED: QUET200T PO (11:15)
[2017-07-10] MEDS ORDERED: BACL10TA PO (11:15)
[2017-07-10] MEDS ORDERED: DICY20TA28 PO (11:15)
[2017-07-10] MEDS ORDERED: HYDR-3895 PO (11:15)
[2017-07-10] MEDS ORDERED: CARB200T8 PO (11:15)
[2017-07-10] MEDS ORDERED: ONDA4TAB11 SL (11:15)
[2017-07-10] MEDS ORDERED: PHEN15TA15 PO (11:15)
[2017-07-10 12:00] VITALS: BP 110/76
[2017-07-10 16:00] VITALS: BP 119/72
--- NOTE | 2017-07-10 18:55 | NUR ---
END OF SHIFT: PT COMPLETED VALIUM TAPER AND IS SCHEDULED FOR DISCHARGE TOMORROW IN AM. LAST CIWA 2. SHE STATES SHE IS EATING WELL AND DRINKING ADEQUATE FLUIDS. SHE EXPRESSED ENTHUSIASM TOWARD RECOVERY PROCESS. SHE ATTENDED GROUPS AND INTERACTED WITH PEERS. WILL PASS SHIFT REPORT TO ONCOMING NIGHT NURSE.
[2017-07-10 20:00] VITALS: BP 100/53
--- NOTE | 2017-07-10 20:00 | NUR ---
Start of Shift Pt is a 42 year old female admitted for Benzo dependence, placed on 5 day Valium taper - completed. Pt reported using Valium PO 45mg 45mg/daily x2 months and Marijuana 1g/daily x 2months. 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 Pt reports allergies to PCN, Sulfa and Dilaudid. Upon assessment, pt presents with anxiety and fatigue. Pt is scheduled for discharge tomorrow. Respirations are even/unlabored, denies SOB/chest pain. Safety measures in place, call light within reach, side rails up x2, bed locked and in low position. Will continue to monitor.
[2017-07-10] MEDS: ONDANSETRON ODT 4 MG TAB.RAPDIS SL PRN (20:26)
[2017-07-10] MEDS: QUETIAPINE FUMARATE 200 MG TABLET PO SCH (20:26)
--- NOTE | 2017-07-10 20:26 | NUR ---
PRN Administration Pt reports nausea, no emesis episodes. Zofran 4mg ODT administered. Safety measures in place. Will continue to monitor.
[2017-07-10] MEDS: OMEPRAZOLE DR 40MG PO SCH (20:27)
--- NOTE | 2017-07-10 21:05 | NUR ---
Medication Refusal PT refused scheduled medications: Bentyl 20mg, Clonidine 0.1mg and Tegretol 200mg. Risks/benefits explained x3, education provided, however pt continues to refuse medications. Safety measures in place. Will continue to monitor.
--- NOTE | 2017-07-10 21:26 | NUR ---
PRN Reassessment Pt reports relief of nausea. Zofran 4mg effective. Needs met, safety measures in place. Will continue to monitor.
[2017-07-10 21:30] LABS: *BILIRUBIN,URIN NEGATIVE (NEGATIVE); *BLOOD, URINE NEGATIVE (NEGATIVE); *CLARITY,URINE SLIGHTLY CLOUDY (CLEAR); *COLOR,URINE YELLOW (YELLOW); *KETONES,URINE NEGATIVE (NEGATIVE); *PROTEIN,URINE NEGATIVE (NEGATIVE); *UROBILINOGEN,URINE 0.2 E.U./dl (NORMAL); LEUKOCYTE ESTERASE ,URINE NEGATIVE (NEGATIVE); NITRITE, URINE NEGATIVE (NEGATIVE); PH,URINE 5.5 (5.0-8.0); UGLUCOSE NEGATIVE (NEGATIVE)
[2017-07-10 21:39] LABS: BACTERIA,URINE FEW /HPF (NONE SEEN); MUCUS,URINE MANY /LPF (0-FEW); SQUAMOUS EPITHELIAL CELL,UR MANY /HPF (NONE SEEN); WBC,URINE 0-3 /HPF (0-3)
[2017-07-11] VITALS: BP 90/53
--- NOTE | 2017-07-11 | NUR ---
Vital Signs BP 90/53, pulse 67, resp 18, Spo2 98% room air, temp 98 CIWA deferred due to pt sleeping, to assess while pt is awake as ordered. Safety measures in place. Will continue to monitor.
--- NOTE | 2017-07-11 04:00 | NUR ---
Pt refused to be woken up for 0400 Vital Signs CIWA deferred due to pt sleeping, to assess while pt is awake as ordered. Safety measures in place. Will continue to monitor.
--- NOTE | 2017-07-11 07:00 | NUR ---
End of Shift Pt is a 42 year old female admitted for Benzo dependence, placed on 5 day Valium taper - completed. Pt reported using Valium PO 45mg 45mg/daily x2 months and Marijuana 1g/daily x 2months. 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 Pt reports allergies to PCN, Sulfa and Dilaudid. During shift, pt presented with anxiety and fatigue - medications administered, latest CIWA 2. Pt refused scheduled medications: Bentyl 20mg, Clonidine 0.1mg and Tegretol 200mg. Risks/benefits explained x3, educations provided, however pt continued to refuse medications. Zofran 4mg PRN administered for nausea, effective as reported per pt. Pt is scheduled for discharge today. Pt slept for 8 hours, intake of 970 ml PO, voids x2 and stool x0. Safety measures in place, call light within reach, side rails up x2, bed locked and in low position. Endorsed to day shift nurse.
--- NOTE | 2017-07-11 07:30 | NUR ---
START OF SHIFT NOTE Received report from night nurse, 42 year old female admitted for Valium dependence. Pt is full code with allergy to sulfa, PCN, and Dilaudid. 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 Pt reports a hx of seizure in 2006 related with withdrawal. She reports using Valium PO 45 mg daily for 2 months. Last dose as 15 mg on 07/04/17,And Marijuana 1 gram daily for 2 months. Last dose was 1 gram on 07/05/17. Pt completed her 5 day Valium tolerated well. Per endorsement pt received PRN'S, slept for 8 hours, last CIWA-2. Received pt alert oriented x4 in stable condition. Pt scheduled for discharge today. Educated pt with current plan of the day and medication regimen with good verbal understanding. All safety measures in place, Call Light within reach. Will cont to monitor.
[2017-07-11 08:00] VITALS: BP 122/79
[2017-07-11] MEDS: BACLOFEN 10 MG TABLET PO SCH (08:37)
--- NOTE | 2017-07-11 08:37 | NUR ---
PT REFUSED MEDS Pt refused her scheduled Tegretol, MVI, Bentyl. Offered x3 risk and benefits explained, pt still refused. Will cont to monitor.
[2017-07-11] MEDS: FLUOXETINE HCL 20 MG CAPSULE PO SCH (08:38)
[2017-07-11] MEDS: GABAPENTIN 600MG PO SCH (08:38)
[2017-07-11] MEDS: CLONIDINE 0.1MG PO SCH (08:38)
[2017-07-11] MEDS: MONTELUKAST 10 MG PO SCH (08:39)
[2017-07-11] MEDS: DICYCLOMINE HCL 20 MG TABLET PO SCH (08:41)
[2017-07-11] MEDS: MULTIVITAMINS,THERAPEUTIC TABLET PO SCH (08:41)
[2017-07-11] MEDS: CARBAMAZEPINE 200 MG TABLET PO SCH (08:41)
--- NOTE | 2017-07-11 09:45 | NUR ---
DISCHARGE NOTE Pt is in stable condition. Vital signs WNL. Pt is alert oriented x4, Skin intact. Pt denies any SI/HI ideations. All discharge paper work completed dated and signed. Pt educated about discharge instructions with good verbal understanding. Pt's last CIWA-1. Pt discharge from [facility] on 07/11/17 at 0945 to [facility]. Pt left with all of her belongings and prescriptions, and medications she brought from home. has been contacted and notified of pt's discharge.
[2017-07-12] MEDS ORDERED: SCOPOLAMINE HYDROBROMIDE 1.5 MG PATCH TD SCH (09:00)
== END 2017-07-11 09:45 | disposition other institution (70) | DRG 895 ==
LOC: SRC 11:35
PROVIDERS: ADMIT Internal Medicine; ATTEND Internal Medicine
PROC: HZ2ZZZZ Detoxification Services for Substance Abuse Treatment (ICD-10-PCS; principal; 2017-07-05)
PROC: HZ41ZZZ Group Counseling for Substance Abuse Treatment, Behavioral (ICD-10-PCS; 2017-07-06)
PROC: HZ31ZZZ Individual Counseling for Substance Abuse Treatment, Behavioral (ICD-10-PCS; 2017-07-08)
DX: F13.230 Sedative, hypnotic or anxiolytic dependence with withdrawal, uncomplicated (principal); E87.3 Alkalosis; F33.2 Major depressive disorder, recurrent severe without psychotic features; F50.00 Anorexia nervosa, unspecified; F12.10 Cannabis abuse, uncomplicated; F14.21 Cocaine dependence, in remission; F17.210 Nicotine dependence, cigarettes, uncomplicated; E86.0 Dehydration; Z81.8 Family history of other mental and behavioral disorders; J45.20 Mild intermittent asthma, uncomplicated; K21.9 Gastro-esophageal reflux disease without esophagitis; F40.01 Agoraphobia with panic disorder; F43.10 Post-traumatic stress disorder, unspecified; Z59.1 Inadequate housing; G47.00 Insomnia, unspecified; R73.9 Hyperglycemia, unspecified; Z91.89 Other specified personal risk factors, not elsewhere classified
CPT/HCPCS: 36415; 70030-TC; 71010; 80307; 80346; 80349; 83735; 84443; 84703; 85025; 86580; 86592; 86705; 86803; 87040; 87340; 87806; A4663; G0480; J1885; J2405; J2550; J3030; J3490; J7030; Q0162